=== PATIENT | female | born 1945 | race African-American/Black ===

== ENCOUNTER 2020-02-10 22:45 | Inpatient (IN) | payer OTHER ==
[~2020-02-10] VITALS: Ht 170.2 cm; Wt 89.4 kg
--- NOTE | ~2020-02-10 | EMS ---
[place] [address] EMS Patient Care Report Name: CRIS OCHOA Room #: PRE M.R.#: [id number] Admission: Attend Phys: Discharge: Date of : 49 Report #: [id number] THIS REPORT FOR: //name// Report Transmitted: 02/10/2020 22:01 EMS Care Summary [place], [place]/[facility] Incident [id number] @ 02/10/2020 22:11 Incident Location [address] [place] [address] Patient CRIS OCHOA Female, 74 Years 1945 Patient Address [address] [place] [address] Patient History Diabetes,Hypertension (HTN),Cirrhosis of Liver, Patient Allergies No known allergies, Chief Complaint "FEELS FUNNY" Disposition Transported No Lights/[facility] Dispatch Reason Breathing Problem Transported To [facility] Narrative DISPATCHED TO BREATHING PROBLEMS. ARRIVED ON SCENE TO FIND FEMALE PATIENT SITTING ON THE LIVING ROOM FLOOR WITH FAMILY. SHE DENIED ANY DIFFICULTY BREATHING OR PAIN. SHE SAID SHE JUST FELT FUNNY AND DID NOT KNOW WHAT WAS WRONG. PATIENT WAS UNABLE TO RECALL HOW LONG SHE HAD BEEN FEELING "FUNNY". HER VITALS WERE OBTAINED. A STROKE SCALE WAS PERFORMED. PATIENT WAS ASSISTED IN STANDING AND WALKING TO THE COT, SECURED WITH STRAPS [place] [address] EMS Patient Care Report Name: CRIS OCHOA Room #: PRE [facility]..#: [id number] Admission: Attend Phys: Discharge: Date of : 49 Report #: [id number] THE AMBULANCE. HER VITALS WERE REOBTAINED AND SHE WAS PLACED ON A 12 LEAD. AN IV WAS STARTED AND SHE WAS TRANSPORTED TO THE HOSPITAL WITH VITALS AND INTERVENTIONS MONITORED ENROUTE. UPON ARRIVAL PATIENT WAS MOVED INTO ED ROOM 2 ON THE COT AND ASSISTED IN MOVING OVER TO THE HOSPITAL BED. PATIENT CARE WAS TURNED OVER TO ED NURSING STAFF. Initial Vitals @22:23P: 118,BP: 199/99,CO: 13,SpO2: 97, @22:29P: 134,CO: 8,SpO2: 98, @22:37P: 124,R: 18,BP: 168/98,Pain: 0/10,GCS: 14,CO: 6,SpO2: 96,Revised Trauma: 12, @22:32P: 122,BP: 134/112,CO: 8,SpO2: 93, @22:27P: 116,BP: 203/108,CO: 8,SpO2: 98, @22:26P: 115,CO: 9,SpO2: 98,[place] Suspected: false @22:17P: 127,R: 22,BP: 202/115,Pain: 0/10,GCS: 14,Glucose: 163,SpO2: 98,Revised Trauma: 12,[place] Suspected: false Assessments @22:15MENTAL:Confused,Person Oriented,Place Oriented,Time Oriented,SKIN:HEENT:Head/Face: No Abnormalities,Neck/Airway: No Abnormalities,LUNG SOUNDS:General: No Abnormalities,Left Upper: No Abnormalities,Right Upper: No Abnormalities,Left Lower: No Abnormalities,Right Lower: No Abnormalities,ABDOMEN:General: No Abnormalities,Left Upper: No Abnormalities,Right Upper: No Abnormalities,Left Lower: No Abnormalities,Right Lower: No Abnormalities,PELVIS//GI:No Abnormalities,EXTREMITIES:Left Arm: No Abnormalities,Right Arm: No Abnormalities,Left Leg: No Abnormalities,Right Leg: No Abnormalities,PULSE:NEURO:Weakness Left-Sided,Weakness Right-Sided, Impression Hypertension Procedures @22:15ALS AssessmentResponse: UnchangedSucceeded@22:173-Lead ECGResponse: UnchangedSucceeded@22:27Saline Lock 10cc (20 ga) Site: Antecubital-LeftResponse: UnchangedSucceeded@22:2612-Lead ECGResponse: UnchangedSucceeded Timeline 22:09,Call Received 22:09,Dispatch Notified 22:11,Dispatched 22:11,En Route 22:14,On Scene 22:15,At Patient 22:15,ALS Assessment,Response: UnchangedSucceeded, 22:17,3-Lead ECG,Response: UnchangedSucceeded, [facility] [address] [place] [address] EMS Patient Care Report Name: GABRIELACRIS Room #: PRE M.R.#: [id number] Admission: Attend Phys: Discharge: Date of : 49 Report #: [id number] 22:17,BP: 202/115 M,PULSE: 127,RR: 22 R,SPO2: 98 Ox,ETCO2: ,B,PAIN: 0,GCS: 14, 22:23,BP: 199/99 M,PULSE: 118,RR: R,SPO2: 97 Ox,ETCO2: ,BG: ,PAIN: ,GCS: , 22:26,12-Lead ECG,Response: UnchangedSucceeded, 22:26,BP: / M,PULSE: 115,RR: R,SPO2: 98 Ox,ETCO2: ,BG: ,PAIN: ,GCS: , 22:27,Saline Lock 10cc 20 ga Site: Antecubital-Left,Response: UnchangedSucceeded, 22:27,Depart Scene 22:27,BP: 203/108 M,PULSE: 116,RR: R,SPO2: 98 Ox,ETCO2: ,BG: ,PAIN: ,GCS: , 22:29,BP: / M,PULSE: 134,RR: R,SPO2: 98 Ox,ETCO2: ,BG: ,PAIN: ,GCS: , 22:32,BP: 134/112 M,PULSE: 122,RR: R,SPO2: 93 Ox,ETCO2: ,BG: ,PAIN: ,GCS: , 22:37,BP: 168/98 M,PULSE: 124,RR: 18 R,SPO2: 96 Ox,ETCO2: ,BG: ,PAIN: 0,GCS: 14, 22:40,At Destination 22:57,Call Closed Disclaimer v1.1 Copyright 2020 [employer] This EMS Care Summary contains data elements from the applicable legal record (which may be displayed differently). It is designed to provide pertinent information for the following purposes: continuity of care, clinical quality, and state data reporting. The complete legal record is available to ED staff and administrators of the receiving hospital in [employer] Patient Tracker. All data is provided "as is."
[2020-02-10 22:54] VITALS: BP 142/88
[2020-02-10 23:14] LABS: ABSOLUTE NEUTROPHILS 3.6 thou/uL (1.4-8.2); BASOPHILS 0.6 % (0.0-2.0); EOSINOPHILS 0.3 % (0.0-3.0); HEMATOCRIT 39.8 % (37.0-47.0); HEMOGLOBIN 13.2 gm/dL (12.0-15.0); LYMPHOCYTES 33.3 % (24.0-44.0); MCH 29.9 pg (26.0-34.0); MCHC 33.2 g/dL (28.0-37.0); MCV 90.1 fL (80.0-100.0); MONOCYTES 7.9 % (1.0-8.0); PLATELET COUNT 135 thou/uL (150-400); POLYS 57.9 % (36.0-66.0); RBC 4.42 mil/uL (4.20-5.00); RDW 15.4 % (10.5-14.5); WBC 6.2 thou/uL (4.0-11.0)
[2020-02-10 23:26] LABS: INR 1.1; PROTIME 11.1 Seconds (9.3-11.4)
[2020-02-10 23:41] LABS: ALBUMIN 3.3 g/dL (3.4-5.0); ANION GAP 11 mmol/L (7-16); BUN 9 mg/dL (7-18); CHLORIDE 100 mmol/L (98-107); CO2 26 mmol/L (21-32); CREATININE 0.9 mg/dL (0.6-1.0); DIRECT BILIRUBIN < 0.1 mg/dL (<0.1-0.2); GLUCOSE 164 mg/dL (74-106); POTASSIUM 3.4 mmol/L (3.5-5.1); SGOT 15 U/L (15-37); SGPT 15 U/L (30-65); SODIUM 137 mmol/L (136-145); TOTAL BILIRUBIN 0.4 mg/dL (0.2-1.0); TOTAL PROTEIN 7.6 g/dL (6.4-8.2)
[2020-02-11 00:23] LABS: URINE BILIRUBIN NEGATIVE (Negative); URINE BLOOD TRACE (Negative); URINE CLARITY CLEAR; URINE COLOR YELLOW; URINE GLUCOSE-RANDOM* NEGATIVE (Negative); URINE KETONES NEGATIVE (Negative); URINE LEUKOCYTES-REFLEX NEGATIVE (Negative); URINE NITRITE-REFLEX NEGATIVE (Negative); URINE PROTEIN (DIPSTICK) NEGATIVE (Negative); URINE UROBILINOGEN 0.2 E.U./dl (0.2-1.0)
[2020-02-11 03:44] VITALS: BP 168/88
[2020-02-11 04:15] VITALS: BP 120/55
[2020-02-11 04:51] LABS: AMP/METHAMP Negative (Negative); BARBITURATES Negative (Negative); BENZODIAZEPINES Negative (Negative); COCAINE POSITIVE (Negative); METHADONE Negative (Negative); OPIATES Negative (Negative); PCP Negative (Negative)
[2020-02-11 04:55] LABS: ANION GAP 8 mmol/L (7-16); BUN 10 mg/dL (7-18); CALCIUM 8.9 mg/dL (8.5-10.1); CHLORIDE 100 mmol/L (98-107); CHOLESTEROL 184 mg/dL (<200); CO2 26 mmol/L (21-32); CREATININE 0.9 mg/dL (0.6-1.0); GLUCOSE 185 mg/dL (74-106); HDL CHOLESTEROL 34 mg/dL (>40); LDL CHOLESTEROL 124 mg/dL (<100); SODIUM 134 mmol/L (136-145); TC:HDL 5.4 Ratio (Not establshd); TRIGLYCERIDE 132 mg/dL (<150); VLDL 26 mg/dL (<40)
[2020-02-11 04:56] LABS: POTASSIUM 4.5 mmol/L (3.5-5.1); SERUM ASSESSMENT Clear
[2020-02-11 05:55] LABS: TSH 0.412 uIU/mL (0.358-3.740)
[2020-02-11 07:10] LABS: FOLIC ACID 19.8 ng/mL (8.6-58.9)
[2020-02-11 07:11] VITALS: BP 130/65
[2020-02-11 10:37] VITALS: BP 131/68
--- NOTE | 2020-02-11 11:52 | EKG ---
[facility] [place] [address] ELECTROCARDIOGRAM REPORT Name: CRIS OCHOA Room #: 451- ADM IN M.R.#: [id number] Admission: 02/11/20 Attend Phys: Gera Lopez MD Discharge: Date of : 49 Report #: [id number] THIS REPORT FOR: cc: BINA - Nancy family physician/PCP BINA - No family physician/PCP Michelet Urias MD ~ THIS REPORT FOR: //name// [facility] ED Test Date: 2020-02-10 Test Time: 23:33:13 Pat Name: CRIS OCHOA Department: Room: [facility] Gender: F Group Supervisor Yard: bright : 1945 Requested By: Ivon Shipley Order Number: [id number] MD: Michelet Urias Measurements Intervals [place] Rate: 95 P: 60 IL: 142 QRS: 65 QRSD: 90 T: 36 QT: 416 QTc: 523 Interpretive Statements Sinus rhythm Multiple ventricular premature complexes No previous ECG available for comparison Electronically Signed On 02-11-2020 11:51:33 CDT by Michelet Urias [email or web address] <ELECTRONICALLY SIGNED> By: Michelet Urias MD 02/11/20 1151 [phone] Michelet Urias MD /EPI
[2020-02-11] MEDS ORDERED: BIOTIN10000 MC1 PO (14:52)
[2020-02-11] MEDS ORDERED: BETA CAROT10000 UNIT PO (14:53)
[2020-02-11] MEDS ORDERED: LANTUS SUBQ (14:55)
[2020-02-11] MEDS ORDERED: GLUCOPHAGE1000 MG PO (14:56)
[2020-02-11] MEDS ORDERED: HYDROCHLOROTHIA25 M2 PO (14:57)
[2020-02-11 15:22] VITALS: BP 143/63
[2020-02-11] MEDS ORDERED: BENICAR40 MG PO (16:21)
[2020-02-11 21:09] VITALS: BP 168/80
[2020-02-12 02:06] LABS: GLYCOHEMOGLOBIN (HGB A1C) 6.6 % (4.8-5.6)
[2020-02-12 05:07] VITALS: BP 165/87
[2020-02-12 07:23] VITALS: BP 168/77
[2020-02-12 11:05] VITALS: BP 169/81
[2020-02-12 15:26] VITALS: BP 165/66
[2020-02-12 18:50] VITALS: BP 174/79
[2020-02-12 23:16] VITALS: BP 155/78
[2020-02-13 05:36] VITALS: BP 150/106
[2020-02-13 07:08] VITALS: BP 167/82
[2020-02-13] MEDS ORDERED: ACETAMINOPHEN325 M1 PO (12:02)
[2020-02-13] MEDS ORDERED: ADULT LOW DOSE81 MG PO (12:02)
--- NOTE | 2020-02-13 12:51 | 2DMMODE ---
[facility] [place] [address] 2 D/M-MODE ECHOCARDIOGRAM Name: CRIS OCHOA Room #: 451-P ADM IN M.R.#: [id number] Admission: 02/11/20 Attend Phys: Al Chiu MD Discharge: Date of : 49 Report #: [id number] THIS REPORT FOR: cc: FAM - No family physician/PCP FAM - No family physician/PCP Philip Abbasi MD ~ APPROVED REPORT Study performed: 02/13/2020 11:54:09 EXAM: Comprehensive 2D, Doppler, and color-flow Echocardiogram Patient Location: Bedside Room #: [facility] Status: routine BSA: 2.01 HR: 78 bpm BP: 167/82 mmHg Rhythm: NSR Other Information Study Quality: Adequate Indications CVA/TIA Hypertension/HDD Echo Enhancing Agent Indication: Rule out Shunt Agent(s) / Amount(s) Used: Agitated Saline 7 cc 2D Dimensions RVDd: 31.90 mm IVSd: 9.64 (7-11mm) LVOT Diam: 20.35 (18-24mm) LVDd: 45.56 mm PWd: 10.44 (7-11mm) Ascending Ao: 31.56 (22-36mm) LVDs: 29.52 (25-40mm) Aortic Root: 29.92 mm IVC: 12.00 mm Volumes Left Atrial Volume (Systole) Single Plane 4CH: 50.68 mL Single Plane 2CH: 56.14 mL LA ESV Index: 30.00 mL/m2 Aortic Valve [facility] [address] [place] [address] 2 D/M-MODE ECHOCARDIOGRAM Name: CRIS OCHOA Room #: 451-[facility] IN .R.#: [id number] Admission: 02/11/20 Attend Phys: Al Chiu MD Discharge: Date of : 49 Report #: [id number] AoV Peak Beau.: 1.20 m/s AO Peak Gr.: 5.74 mmHg LVOT Max P.22 mmHg LVOT Max V: 0.90 m/s DAPHNE Vmax: 2.44 cm2 Mitral Valve E/A Ratio: 1.0 MV Decel. Time: 235.70 ms MV E Max Beau.: 0.58 m/s MV A Beau.: 0.60 m/s MV PHT: 68.35 ms IVRT: 138.41 ms Pulmonary Valve PV Peak Beau.: 0.80 m/s PV Peak Gr.: 2.60 mmHg Pulmonary Vein P Vein S: 0.38 m/s P Vein A: 0.28 m/s P Vein D: 0.28 m/s P Vein A Dur.: 129.2 msec P Vein S/D Ratio: 1.36 Tricuspid Valve TR Peak Beau.: 2.49 m/s TR Peak Gr.: 24.86 mmHg PA Pressure: 30.00 mmHg Left Ventricle The left ventricle is normal size. There is normal LV segmental wall motion. There is normal left ventricular wall thickness. The left ventricular systolic function is normal. The left ventricular ejection fraction is within the normal range. LVEF is 60-65%. Grade I - abnormal relaxation pattern. Right Ventricle The right ventricle is normal size. The right ventricular systolic function is normal. Atria The left atrium size is normal. Injection of bubbles documented no interatrial shunt. The right atrium size is normal. Aortic Valve The Aortic valve is sclerotic. No aortic regurgitation is present. There is no aortic valvular stenosis. Mitral Valve [facility] [address] [place] [address] 2 D/M-MODE ECHOCARDIOGRAM Name: CRIS OCHOA Room #: 451-[facility] IN .R.#: [id number] Admission: 02/11/20 Attend Phys: Al Chiu MD Discharge: Date of : 49 Report #: [id number] The mitral valve is normal in structure. Trace mitral regurgitation. No evidence of mitral valve stenosis. Tricuspid Valve The tricuspid valve is normal in structure. There is trace to mild tricuspid regurgitation. Estimated PAP 30 mmHg. Pulmonic Valve The pulmonary valve is normal in structure. There is no pulmonic valvular regurgitation. Great Vessels The aortic root is normal in size. IVC is normal in size and collapses >50% with inspiration. Pericardium There is no pericardial effusion. <Conclusion> The left ventricle is normal size. There is normal left ventricular wall thickness. The left ventricular systolic function is normal. Grade I - abnormal relaxation pattern. The right ventricle is normal size. The left atrium size is normal. Injection of bubbles documented no interatrial shunt. The Aortic valve is sclerotic. Trace mitral regurgitation. There is trace to mild tricuspid regurgitation. Estimated PAP 30 mmHg. <ELECTRONICALLY SIGNED> By: Philip Abbasi MD 02/13/20 1251 125 125 Philip Abbasi MD /INF
[2020-02-13 13:03] VITALS: BP 167/82
[2020-02-13 13:25] VITALS: BP 167/82
--- NOTE | 2020-02-15 12:02 | HC ---
[facility] [place] [address] CONSULTATION Name: CRIS OCHOA Room #: [facility] IN M.R.#: [id number] Admission: 02/11/20 Attend Phys: Al Chiu MD Discharge: 02/13/20 Date of : 49 Report #: [id number] THIS REPORT FOR: cc: BINA - No family physician/PCP BINA - No family physician/PCP Mac Pimentel MD ~ CC: [facility] physician/PCP Gera Lopez DATE OF SERVICE: 02/11/2020 HISTORY OF PRESENT ILLNESS: This 74-year-old female patient who was admitted with an unusual episode. I reviewed the records in the computer. She does not remember anything. It was noticed that she had some weakness on the right side. She was lethargic. It is not sure what her blood sugar or blood pressure was that time. She does have a history of cirrhosis, but denies any stroke in the past. There was a focality to the right side in this patient. The patient is back to her baseline. REVIEW OF SYSTEMS: A 14-point review of system was carried out. She used to drink alcohol in heavy amounts. She does not do it anymore. She also has cirrhosis. One time, she had a GI bleed that was her relevant 14-point review of system. PAST MEDICAL HISTORY: Positive for diabetes and hypertension. FAMILY HISTORY: Unremarkable. SOCIAL HISTORY: She used to drink alcohol, but does not do it now. PHYSICAL EXAMINATION: Indicates she is alert, responsive, able to follow simple and complex command. Cranial nerve examination 2-12 looks more or less unremarkable. She has symmetrical strength, sensation, reflexes and tone in all 4 extremities. I could not look at the fundus. There is no meningeal sign. Blood pressure is 143/63, respiration is 18, pulse is 90, and temperature is 97.9. LABORATORY DATA: White count is 6.2. Sodium is traced low at 134. Carotid Doppler shows no evidence of hemodynamically significant stenosis. Head CT is unremarkable. IMPRESSION AND PLAN: I discussed with the patient that I do not know the etiology, but we need to consider the possibility of transient ischemic attack and we need to work it out. They tell me MRI cannot be done until there is a stat MRI. Because of that, I will get a CT angio of the head and neck and if that is okay, we will do the MRI on Thursday. When this happened, the patient's [facility] [address] [place] [address] CONSULTATION Name: CRIS OCHOA Room #: 451-P [facility] IN M.Lizabeth.#: [id number] Admission: 02/11/20 Attend Phys: Al Chiu MD Discharge: 02/13/20 Date of : 49 Report #: [id number] blood pressure was high and she may have hypertensive encephalopathy with vasospasm causing focal neurological symptoms. I discussed all of it with the patient and I discussed with her that we need the workup and I discussed all that workup with her and she wants to proceed with it. All the records were reviewed and approximately 50 minutes of time was spent taking care of this patient today and majority of them was counseling and coordinating and during this process, I talked to multiple health manager urgent care including nurses. Thank you very much for this referral. <ELECTRONICALLY SIGNED> By: Mac Pimentel MD 02/15/20 [id number] [id number] Mac Pimentel MD /nt
--- NOTE | 2020-02-17 08:59 | HC ---
[facility] [place] [address] CONSULTATION Name: CRIS OCHOA Room #: 451-P [facility] IN M.R.#: [id number] Admission: 02/11/20 Attend Phys: Al Chiu MD Discharge: 02/13/20 Date of : 49 Report #: [id number] THIS REPORT FOR: cc: BINA - No family physician/PCP BINA - No family physician/PCP Yves Boyd MD ~ CC: [facility] physician/PCP Al Chiu DATE OF SERVICE: 02/13/2020 HISTORY OF PRESENT ILLNESS: We were asked to see the patient by Dr. Pimentel. The patient is a 74-year-old with admission on 02/11/2020 for loss of consciousness. The patient states that she was at a birthday green party and had some of the cake and immediately began to have difficulty speaking and then loss of consciousness. The next thing the patient knew she was in the hospital. According to the ER, the patient called the EMS saying she did not feel right and on arrival, she was found to have weakness in the right arm and leg. EMS said the patient was answering questions appropriately. Blood pressure when they arrived was in the 200 range. PAST HISTORY: The patient denies previous neurologic dysfunction. The patient does have a history of hypertension and diabetes. The patient states that her blood sugar is under reasonable control with hemoglobin A1c in the 6s. PAST MEDICAL HISTORY: Significant also for history of cirrhosis. SOCIAL HISTORY: The patient states that she used to be a drinker, but has not had alcohol since 2 years ago on 02/24. FAMILY HISTORY: Not significant. SOCIAL HISTORY: Negative for tobacco use, negative for current alcohol use. REVIEW OF SYSTEMS: GENERAL: The patient denies fever or chills. EYES: No recent visual change. HEENT: Denies headache, sore throat, hearing problems. RESPIRATORY: Denies cough, shortness of breath. CARDIAC: Denies angina or palpitations. GASTROINTESTINAL: Denies nausea, vomiting, blood. GENITOURINARY: Denies urgency, frequency, blood. MUSCULOSKELETAL: Denies bone or joint pain. SKIN: Treated for cellulitis in the right lower extremity in the gait area approximately one month ago with antibiotics, but claims that this has improved. [facility] [address] [place] [address] CONSULTATION Name: CRIS OCHOA Room #: 451-P [facility] IN ..#: [id number] Admission: 02/11/20 Attend Phys: Al Chiu MD Discharge: 02/13/20 Date of : 49 Report #: [id number] PSYCHIATRIC: Denies hallucination. ENDOCRINE: Denies goiter or tremor. PHYSICAL EXAMINATION: VITAL SIGNS: Temperature 36.5, heart rate 80, respiratory rate 16, blood pressure 167/82. HEENT: No scleral icterus, no arcus. NECK: No mass. I do not hear any bruit. CHEST: Clear to auscultation. HEART: Rhythm regular, no murmur. ABDOMEN: Soft. EXTREMITIES: No clubbing, cyanosis or edema. There is still some mild redness in the lateral distal right leg and some mild tenderness. VASCULAR: 2+ popliteal pulses bilaterally. NEUROLOGIC: No obvious motor or sensory dysfunction. The patient seems to speak normally and certainly answers questions appropriately. PSYCHIATRIC: Oriented x 3 and is appropriate and pleasant. We note that studies include a CT angiogram that shows a 70% right internal carotid stenosis lesion. This does not appear to be hemodynamically significant on the duplex exam, but visually it does appear to be so. However, does not necessarily correlate with the patient's described symptoms. ASSESSMENT: A transient ischemic attack with a drop attack and dysphagia or aphasia. I will discuss the case with Dr. iPmentel and discuss the appropriateness of carotid surgery and also if appropriate its timing. The risks and details of carotid surgery were discussed with the patient. These include but are not limited to bleeding, infection, anesthesia risks, stroke and neurologic dysfunction. The patient wishes to involve her daughter in the discussion and we will present the risks and details of surgery at that point as well. Thank you for the consult. <ELECTRONICALLY SIGNED> By: Yves Boyd MD 02/17/20 [phone] Yves Boyd MD /nt
== END 2020-02-13 13:54 | disposition home or self-care (01) | DRG 67 ==
LOC: ER 22:45 → EROBS 02-11 01:50 → 4W 02-11 01:50
PROVIDERS: Emergency Medicine; Nurse Practitioner Family; ADMIT Internal Medicine; ATTEND Internal Medicine
DX: I65.21 Occlusion and stenosis of right carotid artery (principal); G93.41 Metabolic encephalopathy; I16.1 Hypertensive emergency; R55 Syncope and collapse; I10 Essential (primary) hypertension; K74.60 Unspecified cirrhosis of liver; E11.9 Type 2 diabetes mellitus without complications; Z79.899 Other long term (current) drug therapy; Z79.82 Long term (current) use of aspirin; Z79.4 Long term (current) use of insulin
CPT/HCPCS: 10045